=== PATIENT | male | born 1965 | race Two or more races ===

== ENCOUNTER 2016-11-04 14:19 | Emergency (ER) | payer OTHER ==
[~2016-11-04] VITALS: Ht 170.2 cm; Wt 77.1 kg
[~2016-11-04 14:19] MED LIST: CLINDAMYCIN HC300 MG ORAL
[2016-11-04] MEDS ORDERED: NKM (14:28)
[2016-11-04] MEDS ORDERED: ATHLETE'S FOOT28 GM TOPIC (15:00)
[2016-11-04] MEDS ORDERED: Bacitracin Oint UD TOPIC ONE (15:00)
[2016-11-04] MEDS ORDERED: BACITRACIN15 GM TOPIC (15:00)
[2016-11-04] MEDS ORDERED: IBUPROFEN600 MG ORAL (15:00)
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
[2016-11-04 15:10] VITALS: BP 109/69
== END 2016-11-04 15:10 | disposition home or self-care (01) ==
LOC: EMR 15:02
DX: L03.032 Cellulitis of left toe (principal); B35.3 Tinea pedis; Z88.0 Allergy status to penicillin
CPT/HCPCS: 99284